=== PATIENT | male | born 1960 | race Hispanic/Latino ===

== ENCOUNTER 2016-06-26 18:05 | Emergency (ER) | payer OTHER ==
[~2016-06-26] VITALS: Ht 165.1 cm; Wt 95.0 kg
[~2016-06-26 18:05] MED LIST: NO CURRENT MEDS; ULTRAM50 MG OR
[2016-06-26] MEDS ORDERED: METFORMIN500 MG PO (18:14)
[2016-06-26] MEDS ORDERED: AMARYL4 MG PO (18:14)
[2016-06-26] MEDS ORDERED: PERCOCET 5/325M1 TAB PO (19:43)
[2016-06-26 19:55] VITALS: BP 168/77
== END 2016-06-26 19:56 | disposition home or self-care (01) | DRG 552 ==
LOC: ED 18:05
DX: S33.5XXA Sprain of ligaments of lumbar spine, initial encounter (principal); E11.9 Type 2 diabetes mellitus without complications; M25.562 Pain in left knee; M25.552 Pain in left hip; V59.40XA Driver of pick-up truck or van injured in collision with unspecified motor vehicles in traffic accident, initial encounter

== ENCOUNTER 2018-03-27 07:21 | Day surgery (SDC) | payer BC ==
[~2018-03-27] VITALS: Ht 165.1 cm; Wt 87.1 kg
[~2018-03-27 07:21] MED LIST changes: +AMARYL4 MG PO; +LISINOP/HCTZ1 TA2 PO; +LOPID600 MG PO; +METFORMIN500 MG PO; +MEVACOR40 MG PO; +PERCOCET 5/325M1 TAB PO
[2018-03-27] MEDS ORDERED: PERCOCET 5/325M1 TAB PO (10:11)
[2018-03-27] MEDS ORDERED: MOTRIN800 MG PO (10:11)
[2018-03-27 10:43] VITALS: BP 150/84
== END 2018-03-27 11:05 | disposition home or self-care (01) | DRG 355 ==
LOC: ORM 07:21
PROVIDERS: ATTEND Surgery
PROC: 0WUF4JZ Supplement Abdominal Wall with Synthetic Substitute, Percutaneous Endoscopic Approach (ICD-10-PCS; principal; 2018-03-27)
DX: K42.0 Umbilical hernia with obstruction, without gangrene (principal)
CPT/HCPCS: J2710

== ENCOUNTER 2018-07-04 08:19 | Day surgery (SDC) | payer BC ==
[~2018-07-04 08:19] MED LIST changes: +MOTRIN800 MG PO
[2018-07-04 11:19] VITALS: BP 144/85
== END 2018-07-04 11:24 | disposition home or self-care (01) | DRG 951 ==
LOC: ENDO 08:19
PROVIDERS: ATTEND Surgery
PROC: 0DJD8ZZ Inspection of Lower Intestinal Tract, Via Natural or Artificial Opening Endoscopic (ICD-10-PCS; principal; 2018-07-04)
DX: Z12.11 Encounter for screening for malignant neoplasm of colon (principal); E11.9 Type 2 diabetes mellitus without complications; I10 Essential (primary) hypertension

== ENCOUNTER 2019-02-21 | Emergency (ER) | payer BC ==
[2019-02-21 20:19] LABS: URINE BILIRUBIN - DIPSTICK NEGATIVE (NEGATIVE); URINE BLOOD DIPSTICK MODERATE (NEGATIVE); URINE COLOR YELLOW; URINE GLUCOSE - DIPSTICK >=1000 mg/dL (NEGATIVE); URINE KETONE NEGATIVE (NEGATIVE); URINE LEUK ESTERASE NEGATIVE (NEGATIVE); URINE NITRITE - DIPSTICK NEGATIVE (Negative); URINE PROTEIN - DIPSTICK >=300 mg/dL (NEG-TRACE); URINE SPECIFIC GRAVITY 1.025; URINE UROBILINOGEN - DIPSTICK 0.2 E.U./dL (0.2)
[2019-02-21 20:21] LABS: HEMATOCRIT 36.9 % (39.0-50.0); HEMOGLOBIN 12.2 g/dl (14.0-18.0); IMMATURE GRANULOCYTES 0.3 % (0.0-5.0); MEAN CORPUSCULAR HGB 28.4 pG CALC (26.0-32.0); MEAN CORPUSCULAR HGB CONC 33.1 g/L CALC (32.0-36.0); NEUT# 5.59 thou/uL (1.82-7.42); RED BLOOD COUNT 4.29 mill/uL (4.70-6.10)
[2019-02-21 20:28] LABS: URINE SQUAMOUS EPITHELIAL CELL FEW EPI/hpf (0-FEW)
[2019-02-21 20:28] LABS: ALBUMIN 3.1 g/dL (3.2-5.0); ALKALINE PHOSPHATASE 102 u/l (38-126); ANION GAP 10 (6-22 (CALC)); BILIRUBIN, TOTAL 0.5 mg/dL (0.0-1.4); BUN 18 mg/dL (9-20); BUN/CREATININE RATIO 17 (12-20 (CALC)); CARBON DIOXIDE 29 mmol/l (22-30); CHLORIDE 101 mmol/l (95-108); CREATININE 1.1 mg/dL (0.7-1.3); GFR > 60 ML/MIN (>=60 (CALC)); GFR FOR AFR.AMER. > 60 ML/MIN (>=60 (CALC)); POTASSIUM 4.4 mmol/l (3.5-5.1); SGOT/AST 20 u/l (17-59); SODIUM 136 mmol/l (137-146); TOTAL PROTEIN 6.5 g/dL (6.3-8.2)
[2019-02-21] MEDS ORDERED: METFORMIN500 M1 PO (21:40)
[2019-02-21] MEDS ORDERED: TRAMADOL HCL50 MG PO (21:40)
[2019-02-21] MEDS ORDERED: BACTRIM DS1 TAB PO (21:40)
[2019-02-21] MEDS ORDERED: LISINOPRIL20 MG PO (21:40)
== END 2019-02-21 22:20 | disposition home or self-care (01) | DRG 603 ==
PROVIDERS: Family Medicine
DX: L03.311 Cellulitis of abdominal wall (principal); E11.9 Type 2 diabetes mellitus without complications; I10 Essential (primary) hypertension
CPT/HCPCS: Q9967

== ENCOUNTER 2021-04-06 09:55 | Emergency (ER) | payer SELFPAY ==
[~2021-04-06] VITALS: Ht 165.1 cm; Wt 87.0 kg
[~2021-04-06 09:55] MED LIST changes: +BACTRIM DS1 TAB PO; +LISINOPRIL20 MG PO; +METFORMIN500 M1 PO; +TRAMADOL HCL50 MG PO
[2021-04-06] MEDS ORDERED: CEPHALEXIN500 MG PO (11:19)
[2021-04-06 12:38] VITALS: BP 176/96
== END 2021-04-06 12:49 | disposition home or self-care (01) | DRG 605 ==
LOC: ED 09:55
PROC: 0HQFXZZ Repair Right Hand Skin, External Approach (ICD-10-PCS; principal; 2021-04-06)
DX: S61.411A Laceration without foreign body of right hand, initial encounter (principal); I10 Essential (primary) hypertension; E11.9 Type 2 diabetes mellitus without complications; E78.00 Pure hypercholesterolemia, unspecified; W45.8XXA Other foreign body or object entering through skin, initial encounter; Y92.009 Unspecified place in unspecified non-institutional (private) residence as the place of occurrence of the external cause

== ENCOUNTER 2021-04-08 11:05 | Emergency (ER) | payer SELFPAY ==
[~2021-04-08] VITALS: Ht 165.1 cm; Wt 86.3 kg
[~2021-04-08 11:05] MED LIST changes: +CEPHALEXIN500 MG PO
[2021-04-08 11:57] VITALS: BP 149/82
== END 2021-04-08 12:09 | disposition home or self-care (01) | DRG 950 ==
LOC: ED 11:05
DX: S61.411D Laceration without foreign body of right hand, subsequent encounter (principal); I10 Essential (primary) hypertension; E11.9 Type 2 diabetes mellitus without complications; E78.00 Pure hypercholesterolemia, unspecified; X58.XXXD Exposure to other specified factors, subsequent encounter